=== PATIENT | male | born 2000 | race Caucasian/White ===

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

== ENCOUNTER 2020-01-09 14:33 | Outpatient (CLI) | payer BC ==
[2020-01-09 14:56] LABS: HGB - HEMOGLOBIN 15.8 g/dL (14.0-18.0); MEAN CORPUSCULAR HEMOGLOBIN 31.7 pg (27.0-31.0); MEAN CORPUSCULAR HGB CONC 36.1 g/dL (32.0-36.0); MEAN PLATELET VOLUME 9.8 fL (7.4-11.4); RED BLOOD COUNT 4.98 10^6/uL (4.70-6.10); RED CELL DISTRIBUTION WIDTH 13.6 % (12.0-15.0); WHITE BLOOD COUNT 6.5 x10^3/uL (4.8-10.8)
[2020-01-09 14:58] LABS: BILIRUBIN,URINE NEGATIVE (NEGATIVE); GLUCOSE, URINE (UA) 100 mg/dL (NEGATIVE); KETONES,URINE (UA) NEGATIVE (NEGATIVE); LEUKOCYTE ESTERASE, URINE NEGATIVE (NEGATIVE); NITRITE,URINE NEGATIVE (NEGATIVE); OCCULT BLOOD,URINE TRACE-INTA (NEGATIVE); PROTEIN,URINE TRACE mg/dL (NEGATIVE); UROBILINOGEN,URINE 0.2 (NORMAL) E.U./dL (NORMAL)
[2020-01-09 15:06] LABS: BACTERIA,URINE None Seen /HPF (None Seen); CLARITY,URINE CLEAR (CLEAR); RBC,URINE None Seen /HPF (0-5); SQUAMOUS EPITHELIAL CELL,UR RARE Squamous (<= Few)
[2020-01-09 15:13] LABS: CALCIUM 8.6 mg/dL (8.5-10.3)
[2020-01-09 15:17] LABS: CREATININE,URINE 35.2 mg/dL
== END 2020-01-09 14:34 | disposition home or self-care (01) ==
LOC: LAB 14:33
PROVIDERS: ATTEND Pediatrics Pediatric Nephrology
DX: N18.3 Chronic kidney disease, stage 3 (moderate) (principal); D63.1 Anemia in chronic kidney disease; N17.1 Acute kidney failure with acute cortical necrosis; N25.81 Secondary hyperparathyroidism of renal origin
CPT/HCPCS: 36415; 80051; 81001; 82040; 82306; 82310; 82565; 82570; 83970; 84100; 84156; 84450; 84460; 84520; 85027

== ENCOUNTER 2020-04-13 08:00 | Outpatient (CLI) | payer BC ==
[2020-04-13 18:35] LABS: BILIRUBIN,URINE NEGATIVE (NEGATIVE); GLUCOSE, URINE (UA) NEGATIVE (NEGATIVE); KETONES,URINE (UA) NEGATIVE (NEGATIVE); LEUKOCYTE ESTERASE, URINE NEGATIVE (NEGATIVE); NITRITE,URINE NEGATIVE (NEGATIVE); OCCULT BLOOD,URINE NEGATIVE (NEGATIVE); PROTEIN,URINE TRACE mg/dL (NEGATIVE); UROBILINOGEN,URINE 0.2 (NORMAL) E.U./dL (NORMAL)
[2020-04-13 18:42] LABS: CLARITY,URINE CLEAR (CLEAR)
[2020-04-13 19:00] LABS: CALCIUM 9.3 mg/dL (8.5-10.3); CREATININE 1.9 mg/dL (0.6-1.2); PHOSPHORUS 3.6 mg/dL (2.5-4.6)
[2020-04-13 19:03] LABS: BACTERIA,URINE None Seen /HPF (None Seen); RBC,URINE None Seen /HPF (0-5); SQUAMOUS EPITHELIAL CELL,UR NONE SEEN (<= Few)
== END 2020-04-13 23:59 | disposition home or self-care (01) ==
LOC: LAB.WCP 08:00
PROVIDERS: ATTEND Pediatrics Pediatric Nephrology
DX: N17.1 Acute kidney failure with acute cortical necrosis (principal); N18.3 Chronic kidney disease, stage 3 (moderate)
CPT/HCPCS: 36415; 80051; 81001; 82310; 82565; 84100; 84520

== ENCOUNTER 2021-06-18 08:00 | Outpatient (CLI) | payer BC | END 2021-06-18 23:59 | disposition home or self-care (01) | LOC: LAB.N 08:00 | PROVIDERS: ATTEND Physician Assistant Medical | DX: R05.9 Cough, unspecified (principal); Z20.822 Contact with and (suspected) exposure to COVID-19 ==

== ENCOUNTER 2022-07-03 16:55 | Outpatient (CLI) | payer BC ==
--- NOTE | 2022-07-04 11:43 | Ultrasound Report ---
PROCEDURE: Testicle INDICATIONS: PENILE CYST TECHNIQUE: Real-time scanning was performed of the penis, scrotum and testicles, with image documentation. [place] r and pulse Doppler interrogation was performed of both testicles. COMPARISON: None. FINDINGS: Right: Testicle is normal in size at 4.2 x 2.0 x 2.2 cm, and homogenous in echotexture. Epididymis is normal in overall size and morphology. No hydrocele or varicoceles. Overlying scrotal skin is no rmal in thickness. Left: Testicle is normal in size at 3.5 x 1.8 x 2.1 cm, and homogeneous in echotexture. Epididymis is normal in overall size and morphology. No hydrocele or varicoceles. Overlying scrotal skin is no rmal in thickness. Doppler: Color and pulse Doppler demonstrate normal and symmetric arterial flow in both testicles. Area of concern: Within the subdermal layer of the left distal penile shaft, there is a serpiginous t ubular cystic structure parallel to the skin surface measuring about 1.5 mm in thickness. Color Doppl er imaging demonstrates no intrinsic vascular flow and no abnormal solid vascular nodule. IMPRESSION: 1. Area of concern along the left penile shaft corresponds to a subdermal, avascular tubular structur e, possibly tiny lymphatic malformation or thrombosed venous varicosity. There are no suspicious feat ures. 2. Normal scrotal ultrasound. Reviewed by: Adilene Pizano MD on 07/04/2022 10:41 AM CIARA Approved by: Adilene Pizano MD on 07/04/2022 10:41 AM CIARA Station ID: [id number]
== END 2022-07-03 16:56 | disposition home or self-care (01) ==
LOC: DI 16:55
PROVIDERS: ATTEND Physician Assistant
DX: N48.89 Other specified disorders of penis (principal)

== ENCOUNTER 2022-10-23 15:07 | Outpatient (CLI) | payer BC ==
--- NOTE | 2022-10-23 16:17 | Ultrasound Report ---
PROCEDURE: Ext Limited Non Vascular INDICATIONS: L UPPER ARM MASS TECHNIQUE: Real-time scanning was performed of the left upper extremity, with image documentation. COMPARISON: None. FINDINGS: Focused ultrasound examination of medial aspect of mid left upper arm shows 1 x 0.5 x 1.1 cm iso to s lightly hyperechoic structure within subcutaneous soft tissue and show no internal vascularity. Similar echotexture solid subcutaneous soft tissue lesion involving medial aspect of mid forearm is a lso seen measures 0.8 x 0.5 x 0.8 cm in size. Incidentally noted of intraluminal filling defect involving mid to distal basilic vein with absence o f flow. IMPRESSION: 1. 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 2. Incidentally noted of occlusive venous thrombosis involving mid to distal left basilic vein. Reviewed by: Mk Muñoz MD on 10/23/2022 4:15 PM PST Approved by: Mk Muñzo MD on 10/23/2022 4:15 PM PST Station ID: [id number]
== END 2022-10-23 15:08 | disposition home or self-care (01) ==
LOC: DI 15:07
PROVIDERS: ATTEND Nurse Practitioner Family
DX: D17.22 Benign lipomatous neoplasm of skin and subcutaneous tissue of left arm (principal)

== ENCOUNTER 2022-11-01 15:01 | Outpatient (CLI) | payer BC ==
[2022-11-01 19:13] LABS: CALCIUM 9.7 mg/dL (8.5-10.3); CREATININE 2.6 mg/dL (0.6-1.2); POTASSIUM 4.3 mmol/L (3.5-5.0)
[2022-11-01 19:27] LABS: FECAL OCCULT BLOOD (FIT) NEGATIVE (NEGATIVE)
== END 2022-11-01 15:02 | disposition home or self-care (01) ==
LOC: LAB.N 15:01
PROVIDERS: ATTEND Nurse Practitioner Family
DX: N18.4 Chronic kidney disease, stage 4 (severe) (principal); R19.7 Diarrhea, unspecified
CPT/HCPCS: 36415; 80048; 82274

== ENCOUNTER 2022-11-12 11:10 | Outpatient (CLI) | payer BC ==
[2022-11-14 12:09] LABS: GIARDIA LAMBLIA AG EIA Negative (Negative)
== END 2022-11-12 23:59 | disposition home or self-care (01) ==
LOC: LAB.N 11:10
PROVIDERS: ATTEND Nurse Practitioner Family
DX: R19.7 Diarrhea, unspecified (principal)
CPT/HCPCS: 83993; 87045; 87046; 87177; 87329; 87427; 87493

== ENCOUNTER 2022-12-15 21:57 | Outpatient (CLI) | payer BC ==
--- NOTE | 2022-12-16 08:13 | Ultrasound Report ---
PROCEDURE: Duplex Ext Veins Left INDICATIONS: SUPERFICIAL VEIN THROMBOSIS TECHNIQUE: Real-time imaging, as well as color and pulse Doppler interrogation, were performed of the lower extr emity deep veins from the inguinal ligament to the popliteal fossa. COMPARISON: None. FINDINGS: The deep veins are normally compressible, and free of intraluminal thrombus. Color and pu lse Doppler demonstrate normal phasic intraluminal flow. There is normal augmentation response to di stal compression maneuver. Basilic and cephalic veins are also patent. IMPRESSION: No evidence of DVT. The basilic vein is patent. Reviewed by: Carlos Barrow MD on 12/16/2022 8:11 AM PDT Approved by: Carlos Barrow MD on 12/16/2022 8:11 AM PDT Station ID: [id number]
== END 2022-12-15 21:58 | disposition home or self-care (01) ==
LOC: DI 21:57
PROVIDERS: ATTEND Family Medicine
DX: I82.819 Embolism and thrombosis of superficial veins of unspecified lower extremity (principal)

== ENCOUNTER 2023-03-29 15:15 | Outpatient (CLI) | payer OTHER, BC | END 2023-03-29 23:59 | disposition critical access hospital (66) | LOC: EMS 15:15 | DX: S30.1XXA Contusion of abdominal wall, initial encounter (principal); R10.84 Generalized abdominal pain; R55 Syncope and collapse; R07.81 Pleurodynia; V58.6XXA Passenger in pick-up truck or van injured in noncollision transport accident in traffic accident, initial encounter; Y92.414 Local residential or business street as the place of occurrence of the external cause | CPT/HCPCS: A0425; A0429 ==

== ENCOUNTER 2023-03-29 15:42 | Emergency (ER) | payer OTHER, BC ==
[2023-03-29] MEDS ORDERED: SODIUM CHLORIDE 0.9% 1,000 ML IV STA ×2 (15:49)
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
[2023-03-29 15:57] LABS: BASOPHILS % (AUTO) 0.5 %; EOSINOPHILS # (AUTO) 0.2 10^3/uL (0.0-0.7); EOSINOPHILS % (AUTO) 2.8 %; HCT - HEMATOCRIT 39.4 % (42.0-52.0); HGB - HEMOGLOBIN 14.1 g/dL (14.0-18.0); LYMPHOCYTES # (AUTO) 1.8 10^3/uL (1.5-3.5); LYMPHOCYTES % (AUTO) 28.6 %; MEAN CORPUSCULAR HEMOGLOBIN 31.2 pg (27.0-31.0); MEAN CORPUSCULAR HGB CONC 35.8 g/dL (32.0-36.0); MEAN CORPUSCULAR VOLUME 87.2 fL (80.0-94.0); MEAN PLATELET VOLUME 9.8 fL (7.4-11.4); MONOCYTES # (AUTO) 0.6 10^3/uL (0.0-1.0); NEUTROPHILS # (AUTO) 3.6 10^3/uL (1.5-6.6); NEUTROPHILS % (AUTO) 58.6 %; PLT - PLATELET COUNT 208 10^3/uL (130-450); RED BLOOD COUNT 4.52 10^6/uL (4.70-6.10); RED CELL DISTRIBUTION WIDTH 13.1 % (12.0-15.0); WHITE BLOOD COUNT 6.1 x10^3/uL (4.8-10.8)
[2023-03-29 16:00] LABS: BILIRUBIN,URINE NEGATIVE (NEGATIVE); GLUCOSE, URINE (UA) NEGATIVE (NEGATIVE); KETONES,URINE (UA) NEGATIVE (NEGATIVE); LEUKOCYTE ESTERASE, URINE NEGATIVE (NEGATIVE); NITRITE,URINE NEGATIVE (NEGATIVE); OCCULT BLOOD,URINE NEGATIVE (NEGATIVE); PH,URINE 5.5 PH (5.0-7.5); PROTEIN,URINE NEGATIVE (NEGATIVE); UROBILINOGEN,URINE 0.2 (NORMAL) E.U./dL (NORMAL)
[2023-03-29 16:02] LABS: CLARITY,URINE CLEAR (CLEAR)
[2023-03-29 16:14] LABS: ALBUMIN 4.1 g/dL (3.2-5.5); ALBUMIN/GLOBULIN RATIO 1.4 (1.0-2.2); BILIRUBIN,TOTAL 0.4 mg/dL (0.2-1.0); CALCIUM 9.3 mg/dL (8.5-10.3); CREATININE 2.7 mg/dL (0.6-1.3); POTASSIUM 4.8 mmol/L (3.5-4.5)
[2023-03-29] MEDS ORDERED: iohexoL-300 100 ML VIAL ONE (16:16)
--- OUTSIDE RECORDS SUMMARY | 2023-03-29 16:23 | EXTERNAL MEDICAL SUMMARY RPT | Continuity of Care Document ---
Author Name Unknown Address [address] [place] [address] Phone Organization [place] [facility] Address [address] [place] [address] Phone Care Team Providers Care Plumbing Installer Name Role Phone Unavailable Unavailable Unavailable Abdi Meza Unavailable Unavailable Allergies and Intolerances date description facility reaction severity (no date) No Known Drug Allergies [facility] (no julio ction) (no severity) Medications date description facility 2023-01-17 00:00 Fluticasone Propion-Salmeterol [facility] 2023-01-17 00:00 Prednisone [facility] 2023-01-17 00:00 Albuterol Sulfate [facility] Problems date description facility 2023-01-17 00:00 Chronic kidney disease [facility] Procedures date description facility 2023-01-17 00:00 X-ray of chest, single [facility] Results/Labs test date facility value unit notes Social History date description facility 2023-01-17 00:00 Never smoked tobacco (finding) [facility] Vital Signs date measurement value units 2023-01-17 00:00 BMI 25.1 kg/m2 2023-01-17 00:00 BP_diastolic 58 mmHg 2023-01-17 00:00 BP_systolic 112 mmHg 2023-01-17 00:00 heart_rate 102 /min 2023-01-17 00:00 height_metric 180.34 cm 2023-01-17 00:00 height_standard 71 in 2023-01-17 00:00 o2_saturation 95 % 2023-01-17 00:00 respiration_rate 15 /min 2023-01-17 00:00 temperature_metric 36.56 C 2023-01-17 00:00 temperature_standard 97.8 F 2023-01-17 00:00 weight_metric 81.64 kg 2023-01-17 00:00 weight_standard 179.99 lb
[2023-03-29] MEDS ORDERED: iohexoL-300 100 ML VIAL IVP ONE (17:26)
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
[2023-03-29 18:11] VITALS: BP 119/65
== END 2023-03-29 18:20 | disposition home or self-care (01) ==
LOC: EDUNIT# → ED 15:42
DX: S20.211A Contusion of right front wall of thorax, initial encounter (principal); S20.311A Abrasion of right front wall of thorax, initial encounter; V48.6XXA Car passenger injured in noncollision transport accident in traffic accident, initial encounter; Y93.I9 Activity, other involving external motion; Y92.828 Other wilderness area as the place of occurrence of the external cause; N18.9 Chronic kidney disease, unspecified; E87.5 Hyperkalemia; R79.89 Other specified abnormal findings of blood chemistry
CPT/HCPCS: 36415; 70450; 71260; 74177; 80053; 81003; 83690; 85025; 96360; 99284; Q9967; 81001; 87086

== ENCOUNTER 2023-05-02 08:00 | Outpatient (CLI) | payer BC ==
[2023-05-02 19:39] LABS: BASOPHILS % (AUTO) 0.5 %; EOSINOPHILS # (AUTO) 0.1 10^3/uL (0.0-0.7); EOSINOPHILS % (AUTO) 2.1 %; HCT - HEMATOCRIT 42.1 % (42.0-52.0); HGB - HEMOGLOBIN 14.5 g/dL (14.0-18.0); LYMPHOCYTES # (AUTO) 1.7 10^3/uL (1.5-3.5); LYMPHOCYTES % (AUTO) 28.4 %; MEAN CORPUSCULAR HEMOGLOBIN 31.2 pg (27.0-31.0); MEAN CORPUSCULAR HGB CONC 34.4 g/dL (32.0-36.0); MEAN CORPUSCULAR VOLUME 90.5 fL (80.0-94.0); MONOCYTES # (AUTO) 0.4 10^3/uL (0.0-1.0); MONOCYTES % (AUTO) 6.7 %; NEUTROPHILS # (AUTO) 3.6 10^3/uL (1.5-6.6); NEUTROPHILS % (AUTO) 61.8 %; PLT - PLATELET COUNT 214 10^3/uL (130-450); RED BLOOD COUNT 4.65 10^6/uL (4.70-6.10); RED CELL DISTRIBUTION WIDTH 13.3 % (12.0-15.0); WHITE BLOOD COUNT 5.8 x10^3/uL (4.8-10.8)
[2023-05-02 19:55] LABS: ALBUMIN 4.3 g/dL (3.2-5.5); ALBUMIN/GLOBULIN RATIO 1.6 (1.0-2.2); BILIRUBIN,TOTAL 0.4 mg/dL (0.2-1.0); CALCIUM 10.8 mg/dL (8.5-10.3); CREATININE 1.9 mg/dL (0.6-1.3); POTASSIUM 3.8 mmol/L (3.5-4.5)
[2023-05-02 22:28] LABS: CHLAMYDIA TRACHOMATIS DNA NEGATIVE (NEGATIVE); NEISSERIA GONORRHOEAE DNA NEGATIVE (NEGATIVE); TRICHOMONAS VAGINALIS DNA NEGATIVE (NEGATIVE)
[2023-05-04 09:10] LABS: HCV AB Non Reactive (Non Reactive); HIV SCREEN 4TH GENERATION Non Reactive (Non Reactive)
[2023-05-05 06:10] LABS: RPR Non Reactive (Non Reactive)
== END 2023-05-02 23:59 | disposition home or self-care (01) ==
LOC: LAB.N 08:00
PROVIDERS: ATTEND Registered Nurse
DX: R30.0 Dysuria (principal)
CPT/HCPCS: 36415; 80053; 85025; 86592; 86695; 86696; 86803; 87086; 87389; 87491; 87591; 87661

== ENCOUNTER 2023-08-03 14:00 | Outpatient (CLI) | payer BC ==
--- NOTE | 2023-08-03 15:28 | XRAY Report ---
PROCEDURE: Chest 2 View X-Ray INDICATIONS: COUGH VARIANT ASTHMA TECHNIQUE: 2 views of the chest were acquired. COMPARISON: None. FINDINGS: Surgical changes and devices: None. Lungs and pleura: No pleural effusions or pneumothorax. There is a small patchy infiltrate at the le ft lung base. Mediastinum: Mediastinal contours appear normal. Heart size is normal. Bones and chest wall: No suspicious bony lesions. Overlying soft tissues appear unremarkable. IMPRESSION: Small patchy infiltrate left lung base. Reviewed by: Eduardo Bauer MD on 08/03/2023 3:27 PM PST Approved by: Eduardo Bauer MD on 08/03/2023 3:27 PM PST Station ID: [id number]
== END 2023-08-03 14:15 | disposition home or self-care (01) ==
LOC: DI.N 14:00
PROVIDERS: ATTEND Physician Assistant Medical
DX: J45.991 Cough variant asthma (principal); R05.3 Chronic cough; R91.8 Other nonspecific abnormal finding of lung field

== ENCOUNTER 2023-10-21 20:15 | Emergency (ER) | payer BC ==
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
[2023-10-21] MEDS: IPRATROPIUM/ALBUTEROL 3 ML NEB INH STA (20:35)
[2023-10-21] MEDS: predniSONE 20 MG TABLET PO STA (20:46)
[2023-10-21 21:25] VITALS: BP 136/69; O2SAT 96
== END 2023-10-21 21:25 | disposition home or self-care (01) ==
LOC: ED 20:15
DX: J45.901 Unspecified asthma with (acute) exacerbation (principal); I10 Essential (primary) hypertension
CPT/HCPCS: 94640; 99283; J7512

== ENCOUNTER 2023-11-28 08:00 | Outpatient (CLI) | payer BC ==
[2023-11-28 19:54] LABS: BASOPHILS % (AUTO) 0.6 %; EOSINOPHILS # (AUTO) 0.3 10^3/uL (0.0-0.7); EOSINOPHILS % (AUTO) 4.5 %; HCT - HEMATOCRIT 48.9 % (42.0-52.0); HGB - HEMOGLOBIN 16.3 g/dL (14.0-18.0); LYMPHOCYTES # (AUTO) 1.9 10^3/uL (1.5-3.5); LYMPHOCYTES % (AUTO) 27.9 %; MEAN CORPUSCULAR HEMOGLOBIN 31.2 pg (27.0-31.0); MEAN CORPUSCULAR HGB CONC 33.3 g/dL (32.0-36.0); MEAN CORPUSCULAR VOLUME 93.7 fL (80.0-94.0); MEAN PLATELET VOLUME 10.7 fL (7.4-11.4); MONOCYTES # (AUTO) 0.5 10^3/uL (0.0-1.0); MONOCYTES % (AUTO) 7.4 %; NEUTROPHILS # (AUTO) 3.9 10^3/uL (1.5-6.6); NEUTROPHILS % (AUTO) 59.1 %; PLT - PLATELET COUNT 215 10^3/uL (130-450); RED BLOOD COUNT 5.22 10^6/uL (4.70-6.10); WHITE BLOOD COUNT 6.6 x10^3/uL (4.8-10.8)
[2023-11-28 20:31] LABS: CALCIUM 10.6 mg/dL (8.5-10.3); POTASSIUM 4.6 mmol/L (3.5-4.5)
== END 2023-11-28 23:59 | disposition home or self-care (01) ==
LOC: LAB.N 08:00
PROVIDERS: ATTEND Physician Assistant Medical
DX: N20.9 Urinary calculus, unspecified (principal)
CPT/HCPCS: 36415; 80048; 85025; 87086

== ENCOUNTER 2023-12-01 10:00 | Outpatient (CLI) | payer BC ==
[2023-12-01 18:18] LABS: CALCIUM 11.4 mg/dL (8.5-10.3); CREATININE 2.6 mg/dL (0.6-1.3); POTASSIUM 4.2 mmol/L (3.5-4.5)
== END 2023-12-01 10:15 | disposition home or self-care (01) ==
LOC: LAB.N 10:00
PROVIDERS: ATTEND Family Medicine
DX: N18.4 Chronic kidney disease, stage 4 (severe) (principal)
CPT/HCPCS: 36415; 80048

== ENCOUNTER 2024-02-19 12:13 | Outpatient (CLI) | payer BC ==
--- NOTE | 2024-02-19 14:44 | Ultrasound Report ---
PROCEDURE: Soft Tissue Head or Neck INDICATIONS: ENLARGED THYROID TECHNIQUE: Real-time scanning was performed of the thyroid gland, with image documentation. COMPARISON: None FINDINGS: Right: Thyroid lobe measures 5.5 x 1.6 x 1.8 cm. Left: Thyroid lobe measures 4.6 x 1.9 x 1.8 cm Isthmus: 0.3 cm thick. Echotexture: Homogeneous. IMPRESSION: 1. Thyroid gland is prominent in size. No discrete thyroid nodules. Please correlate with thyroid fun ction tests. ACR TI-RADS definitions and recommendations: TI-RADS 1 (benign): 0 points. FNA not needed. TI-RADS 2 (not suspicious): 2 points. FNA not needed. TI-RADS 3 (mildly suspicious): 3 points. "FNA if 2.5 cm or larger, follow up if 1.5 cm or larger (at 1, 3, and 5 years). TI-RADS 4 (moderately suspicious): 4-6 points. "FNA if 1.5 cm or larger, follow up if 1 cm or larger (at 1, 2, 3, and 5 years). TI-RADS 5 (highly suspicious): 7 points or more. "FNA if 1 cm or larger, follow up if 0.5 cm or larger (every year for 5 years). Reviewed by: Nafisa Hughes MD on 02/19/2024 1:43 PM CIARA Approved by: Nafisa Hughes MD on 02/19/2024 1:43 PM CIARA Station ID: [id number]
== END 2024-02-19 12:14 | disposition home or self-care (01) ==
LOC: DI 12:13
PROVIDERS: ATTEND Nurse Practitioner Family
DX: E04.9 Nontoxic goiter, unspecified (principal)

== ENCOUNTER 2024-03-04 08:00 | Outpatient (CLI) | payer BC ==
[2024-03-04 18:35] LABS: AMPHETAMINE SCREEN,URINE NEGATIVE (NEGATIVE); BARBITURATE SCREEN,UR NEGATIVE (NEGATIVE); BENZODIAZEPINES SCREEN, URINE NEGATIVE (NEGATIVE); BUPRENORPHINE SCREEN, URINE NEGATIVE (NEGATIVE); COCAINE SCREEN URINE NEGATIVE (NEGATIVE); METHADONE SCREEN, URINE NEGATIVE (NEGATIVE); METHAMPHETAMINES SCREEN, URINE NEGATIVE (NEGATIVE); OPIATE SCREEN, URINE NEGATIVE (NEGATIVE); OXYCODONE SCREEN, URINE NEGATIVE (NEGATIVE); THC CANNABINOID SCREEN, URINE NEGATIVE (NEGATIVE); TRICYCLIC ANTIDEPRESSANT,URINE NEGATIVE (NEGATIVE)
== END 2024-03-04 23:59 | disposition home or self-care (01) ==
LOC: LAB.N 08:00
PROVIDERS: ATTEND Nurse Practitioner Family
DX: F90.9 Attention-deficit hyperactivity disorder, unspecified type (principal); Z02.89 Encounter for other administrative examinations; Z79.899 Other long term (current) drug therapy
CPT/HCPCS: 80306

== ENCOUNTER 2024-03-22 08:00 | Outpatient (CLI) | payer BC | END 2024-03-22 23:59 | disposition home or self-care (01) | LOC: LAB.WCP 08:00 | PROVIDERS: ATTEND Nurse Practitioner Family | DX: Z02.89 Encounter for other administrative examinations (principal); F90.9 Attention-deficit hyperactivity disorder, unspecified type; Z79.899 Other long term (current) drug therapy | CPT/HCPCS: 80307; 81599 ==

== ENCOUNTER 2024-03-24 10:22 | Outpatient (CLI) | payer BC ==
--- NOTE | 2024-03-24 11:21 | Sleep Patient Instructions ---
Sleep Center Visit Summary - Patient Visit Information Reason for Visit: Initial consult for evaluation of sleep disordered breathing and other sleep issues. - Patient Instructions Instructions Attached: Sleep Study Home Monitor Additional Instructions: You will be completing a sleep study, either an in-lab polysomnography (PSG) or home sleep study (HST). You will follow-up in the sleep care office after the sleep study is completed to hear the results and talk about therapy, if needed. You will be called by our office staff to schedule this appointment, but you may contact us with any questions. - Clinic Information Contact: [facility] [address] [place] [address] [email or web address] T: [phone]
--- NOTE | 2024-03-24 11:30 | SLEEP CARE CONSULTATION ---
Information from patient questionnaire entered by Maryjo King. I have reviewed and concur with the information entered by Maryjo King. This document represents the service I personally performed and the decisions made by me, Padmini Camarillo ARNP. History of Present Illness Service Date and Time: 03/24/2024 1022 Reason for Visit: New patient Chief Complaint: reports: Excessive daytime sleepiness, Fatigue Date of Onset: MORE THAN THREE YRS Usual bedtime: 2569-9630 Time it takes to fall asleep: 15MINS Snores at night: No Observed to quit breathing while asleep: No Sleeps alone due to snoring: No Number of times waking at night: 3-4 Reasons for waking at night: reports: Gasping for air, Bathroom Toss, Turn, or Twitch while sleeping: Yes Recalls having dreams: Yes Feels refreshed in the morning: No Morning headache: No Sleepy or fatigued during the day: Yes Ever fallen asleep while driving: No Takes day naps: Yes Dreams during day naps: Yes Prior sleep studies: No Additional HPI information: I had the pleasure of seeing NISHANT DA SILVA today regarding the possibility of him having a sleep disorder. His current complaints are excessive daytime sleepiness and fatigue. He says he is really tired all the time and is sleeping up to 14 hours a day. He says he feels physically weak during the day. He will sometimes take naps too. He has been told he shakes his legs at night every few minutes. He says he sleeps better with his head elevated. He says he has nightmares almost every night in the last year. He has been diagnosed with mild bipolar syndrome with mood swings. He says it is currently well controlled with medications. He had a grandparent and uncles who uses a PAP device when sleeping. The patient tells me that he normally goes to bed around 9-10 pm, and it takes him approximately 10-15 minutes to fall asleep. He has not been told that he snores loudly and irregularly at night. He has not been observed to stop breathing in his sleep. He can recall waking up on the average of 3-4 times during the night. Most of the time he wakes up because of gasping for air and bathroom. He has occasionally awakened for having to gasp for air. There is a lot of tossing and turning in his sleep. Generally he can recall having dreams. He usually wakes up at 0400 to use restroom and then about 0800 to 2 in afternoon and does not feel refreshed. He usually does not have a morning headache. During the day he complains of feeling sleepy and fatigued. He has never fallen asleep while driving nor has any accident due to sleepiness. He usually naps for about 1-2 hours or on a bad day 4-5 hours during the day. If he naps, upon falling asleep during the day he admits to having vivid dreams. He says he always has vivid dreams. There is somniloquy (sleep talking) but no somnambulism (sleep walking). He denies having impaired concentration during the day. - Parasomnia Symptoms Ever been unable to move upon waking from sleep: No Walks in sleep: No Talks in sleep: No Ever acted out dreams in sleep: No Ever felt weak in the knees when startled or emotional: No Bothered by creepy, crawly, restless sensations in legs: No Problems with memory or concentration: No Subjective Initial [place] Sleepiness Scale score: 11 (03/24/24) Past Medical History Past Medical History: reports: Hypertension, Anxiety, Asthma, Mood disorder (Bipolar) Social History The patient's occupation is a [employer]. Patient is Single and lives in . Have you smoked in the past 12 months: No Alcohol use: No Caffeine use: Yes Caffeine amount and frequency: 1-2 TIMES A WEEK Family History Family history of sleep disordered breathing: Yes Family Hx Sleep Apnea: Mother: Sleep apnea - Untreated, Grandparent: Sleep apnea - Treated, Other: Sleep apnea - Treated Allergies and Home Medications Known drug allergies: No Drug allergies reviewed: Yes Home medication list reviewed: Yes (as listed) Allergy and home medication list: Allergies No Known Drug Allergies Allergy (Verified 03/22/24 10:36) Home Medications Medication Instructions Recorded Confirmed Last Taken Type Albuterol Sulfate [Proair 1 - 2 puffs INH Q4HR PRN 10/21/23 10/21/23 10/20/23 History Digihaler] Escitalopram [Lexapro] 20 mg PO DAILY 10/21/23 10/21/23 10/20/23 History Fluticasone Propion/Salmeterol 1 - 2 puffs INH DAILY 10/21/23 10/21/23 10/20/23 History [Advair 250-50 Diskus] Lisinopril [Zestril] 5 mg PO DAILY 10/21/23 10/21/23 10/20/23 History lamoTRIgine [Lamictal] 150 mg PO DAILY 10/21/23 10/21/23 10/20/23 History Fluticasone/Salmeterol 100/50 See Rx Instructions .ROUTE .COMPLEX 03/24/24 03/24/24 Unknown History [Advair 100 Mcg/50 Mcg] Loratadine [Claritin] See Rx Instructions .ROUTE .COMPLEX 03/24/24 03/24/24 Unknown History Melatonin/Pyridoxine [Melatonin 5 See Rx Instructions .ROUTE .COMPLEX 03/24/24 03/24/24 Unknown History mg Tablet] Review of Systems Cardiovascular: reports: high blood pressure Respiratory: reports: shortness of breath Neurological: denies: headaches Ear/Nose/Throat: denies: tonsillectomy Endocrine: reports: sluggishness, unexplained weakness Physical Exam Vital signs obtained and entered by: MARYJO Garland MA Blood Pressure: 140/87 (RIGHT ARM) Cuff size: regular Heart Rate: 67 O2 Saturation: 7 Height: 5 ft 10 in Weight: 214 lb 6.4 oz Body Mass Index: 30.7 BMI Classification: Obese Neck circumference: 14.5 Nostrils: patent to airflow Mouth and throat: narrow oropharynx Soft palate: long Hard palate: normal Uvula: normal Uvula visualization: 25% Mallampati Class III Tongue: enlarged in size with teeth bourne on lateral edges Tonsils: small Neck: normal w/o lymphadenopathy or thyromegaly Heart: regular rate and rhythm Lungs: clear bilaterally Impression and Plan 1. Suspected Obstructive Sleep Apnea-Hypopnea Syndrome, as suggested by a history of gasping or choking in sleep, frequent awakening during the night, unrefreshed sleep, and excessive daytime sleepiness. Narrow oropharynx and obesity are common predisposing factors for obstructive sleep apnea-hypopnea syndrome. I recommend proceeding to polysomnography to confirm the diagnosis and to assess severity. If the patient has significant sleep disordered breathing, a manual CPAP titration study will also be performed to find the optimal treatment pressure. I informed the patient of what the sleep studies involve and after some discussion, obtained agreement to proceed. The pathophysiology of obstructive sleep apnea-hypopnea syndrome was discussed with the patient and health risks of cardiovascular and cerebrovascular disease if not treated. Risks of drowsy driving discussed in detail and patient advised to avoid long distance driving and to line puller at the first sign of drowsiness. Patient agreed to plan. Patient was also counseled on how to get adequate/better sleep. Patient averages 14 hours of sleep nightly and will also nap for 1-2 hours during the day. Most people require 7-9 hours of sleep for optimal mental and physical function. I explained that over-sleeping can also make you feel tired. I advised him to pick a get up time (say 8-9 AM) and stick to it on a daily basis. He should also limit naps to 30 minutes maximum and to not take them after 2 PM. He voiced understanding. * Schedule polysomnography. * Avoid long distance driving or driving when feeling sleepy. * Avoid alcohol, sedative and muscle relaxant around bedtime. * Attempt to lose weight. * Review instructions provided by trained office staff on how to prepare for the sleep study. * Return for follow-up after sleep study completed. Counseling Topics: Weight loss health impact Visit Type: In Office Time Spent with Patient (minutes): 30 Provider Statement: I spent 100% of the Face to Face Visit with the patient with greater than 50% spent counseling the patient and coordination of care.
[2024-03-24 11:49] VITALS: BP 140/87; O2SAT 7
== END 2024-03-24 10:23 | disposition home or self-care (01) ==
LOC: SC 10:22
PROVIDERS: ATTEND Nurse Practitioner Family
DX: G47.10 Hypersomnia, unspecified (principal); G47.8 Other sleep disorders; R06.83 Snoring; E66.9 Obesity, unspecified; Z68.30 Body mass index [BMI] 30.0-30.9, adult
CPT/HCPCS: 99203; 99212

== ENCOUNTER 2024-05-10 21:44 | Outpatient (CLI) | payer BC | END 2024-05-10 21:45 | disposition home or self-care (01) | LOC: SC 21:44 | PROVIDERS: ATTEND Nurse Practitioner Family | DX: G47.31 Primary central sleep apnea (principal) | CPT/HCPCS: 95810 ==

== ENCOUNTER 2024-05-24 14:34 | Outpatient (CLI) | payer BC ==
--- NOTE | 2024-05-24 15:05 | Sleep Patient Instructions ---
Sleep Center Visit Summary - Patient Visit Information Reason for Visit: Sleep study follow-up - Patient Instructions Additional Instructions: You are being started on CPAP therapy. You will be completing a titration sleep study in our sleep lab where you will be sleeping with the CPAP machine on and we will be adjusting your pressures to find your optimal pressure settings. Once we have your results back, we will call you and schedule a follow up to go over the results, you may contact us with any questions or issues as needed.. - Clinic Information Contact: [facility] [address] [place] [id number] [email or web address] T: [phone]
--- NOTE | 2024-05-24 15:07 | SLEEP CARE CONSULTATION ---
Information from patient questionnaire entered by Maryjo King. I have reviewed and concur with the information entered by Maryjo King. This document represents the service I personally performed and the decisions made by , Padmini Camarillo ARNP. History of Present Illness Service Date and Time: 05/24/2024 1434 Accompanied by: Maulik Initial [place] Sleepiness Scale score: 11 Current [place] Sleepiness Scale score: 6 (05/24/24) Additional HPI information: NISHANT DA SILVA returns for follow up with his mother, Gwendolyn, and results of the recently performed polysomnography. The sleep study done on 05/20/24 showed mild central sleep apnea with an average AHI of 14.4 and jia oxygen saturation of 87%. I explained the pathophysiology behind obstructive sleep apnea. We then spent quite a bit of time discussing different treatment options. For mild obstructive sleep apnea, surgery and oral appliance are alternatives to nasal CPAP therapy but in moderate or severe cases, nasal CPAP is the most effective and reliable treatment. I reviewed the impact of weight changes on sleep apnea and strongly recommended losing weight. After some discussion, the patient opted to go with the nasal CPAP therapy. A manual titration study will be ordered to find optimal pressure. I explained how CPAP machine works and what to expect when using the machine. Patient does not drink alcohol. Patient was cautioned about risks of drowsy driving until sleepiness symptoms resolve. Patient denies drowsy driving. Sleep Study - Results Type of Sleep Study: Polysomnography (COMPLETED 05/10/24) Prior sleep studies: No Polysomnography/Home Sleep Study results: IMPRESSION: The quality of the study is good. The patient had reduced sleep efficiency due to several prolonged awakenings during the night. The sleep architecture was abnormal for sleep fragmentation and reduced amount of time spent in REM sleep. Respiratory monitoring showed mild central sleep apnea- hypopnea (AHI = 14.4) associated with frequent arousals, oxyhemoglobin desaturation and mild hypoxia (jia oxygen saturation of 87%). The respiratory events occurred slightly more frequently during supine sleep (supine AHI = 15.9; non-supine = 11.27). Snore was infrequent and light in intensity. There was no significant periodic leg movement of sleep. Cardiac rhythm was normal sinus rhythm without significant arrhythmia. No abnormal behavior (parasomnia) observed during the night. Allergies and Home Medications Known drug allergies: No Drug allergies reviewed: Yes Home medication list reviewed: Yes (no changes) Allergy and home medication list: Allergies No Known Drug Allergies Allergy (Verified 05/24/24 14:39) Review of Systems Review of systems same as previous: Yes (NO CHANGE) Physical Exam Vital signs obtained and entered by: MARYJO Garland MA Blood Pressure: 139/81 (RIGHT ARM) Cuff size: regular Heart Rate: 88 O2 Saturation: 97 Height: 5 ft 10 in Weight: 212 lb 3.2 oz Body Mass Index: 30.4 BMI Classification: Obese Impression and Plan 1. Central Sleep Apnea-Hypopnea Syndrome, mild, with lowest oxygen saturation of 87%. Obviously this is the cause of the patients symptoms of unrefreshed sleep, and excessive daytime sleepiness. Positive pressure therapy could benefit hypertension, anxiety, asthma and bipolar. As mentioned above, the patient will be started on nasal autoCPAP therapy. A manual titration study will be completed to find optimal treatment pressure because of his central sleep apnea. Compliance guidelines also reviewed. 2. Hypoxemia, mild, with a jia oxygen saturation of 87% and 0.2 minutes spent under 90%. The baseline oxygen saturation was normal with an average oxygen saturation of 94%. 3. Obesity, unspecified. Currently patients BMI is 30.4. Obesity increases the risk of apnea, CPAP pressure requirements and overall health risks especially cardiovascular and diabetes. Thus patient is advised to lose weight. * Titration study. * Attempt to lose weight. * Return after titration study to hear results and initiate therapy. Counseling Topics: Weight loss health impact Plan: Titration study and follow up Visit Type: In Office Time Spent with Patient (minutes): 20 Provider Statement: I spent 100% of the Face to Face Visit with the patient with greater than 50% spent counseling the patient and coordination of care.
[2024-05-24 15:20] VITALS: BP 139/81; O2SAT 97
== END 2024-05-24 14:35 | disposition home or self-care (01) ==
LOC: SC 14:34
PROVIDERS: ATTEND Nurse Practitioner Family
DX: G47.31 Primary central sleep apnea (principal); R09.02 Hypoxemia; E66.9 Obesity, unspecified; Z68.30 Body mass index [BMI] 30.0-30.9, adult
CPT/HCPCS: 99212; 99213